=== PATIENT | female | born 1990 | race Caucasian/White ===

== ENCOUNTER 2020-06-20 21:40 | Emergency (ER) | payer OTHER ==
[~2020-06-20] VITALS: Ht 170.2 cm; Wt 81.4 kg
[~2020-06-20 21:40] MED LIST: IBUP-2070 PO
[2020-06-20 21:46] VITALS: BP 119/68
== END 2020-06-20 23:50 | disposition home or self-care (01) ==
LOC: EMS 21:40
DX: O26.893 Other specified pregnancy related conditions, third trimester (principal); Z20.828 Contact with and (suspected) exposure to other viral communicable diseases; Z3A.37 37 weeks gestation of pregnancy; Z88.5 Allergy status to narcotic agent; Z88.6 Allergy status to analgesic agent
CPT/HCPCS: 99283; U0003